=== PATIENT | female | born 2000 | race African-American/Black ===

== ENCOUNTER 2021-05-14 19:15 | Emergency (ER) | payer OTHER, SELFPAY ==
[2021-05-14 19:28] VITALS: BP 105/68; PULSE 81; RESP 20; TEMP 36.7; O2SAT 100
--- NOTE | 2021-05-14 19:42 | ED.ABDPAIN ---
HPI - Abdominal Pain General Chief Complaint: Abdominal Pain Stated Complaint: Stomach Pain Time Seen by Provider: 05/14/21 19:42 Source: patient Mode of arrival: ambulatory History of Present Illness HPI narrative: Jared Smith is a 20 yo female who comes to [facility] with complaints of lower abdominal pain and cramping, she says she has had nausea vomiting and diarrhea over the last few days. States that it hurts more worse in the morning and sometimes start to hurt after she eats; she denies use of alcohol are smoking. She has had normal bowel movements in the last few days Related Data Allergies Allergy/AdvReac Type Severity Reaction Status Date / Time No Known Allergies Allergy Verified 05/14/21 19:39 Review of Systems Review of Systems: Narrative: CONSTITUTIONAL: Denies fever, chills, sweats. EYES: Denies visual changes, redness, discharge. ENT: Denies rhinorrhea, congestion, sore throat, otalgia. CARDIOVASCULAR: Denies chest pain, palpitations, edema. RESPIRATORY: Denies dyspnea, wheezing, cough GASTROINTESTINAL: Has abdominal pain, has some nausea, some vomiting, occasional diarrhea. GENITOURINARY: Denies dysuria, hematuria, no abnormal discharge SKIN: Denies rash or itching. NEUROLOGIC: Denies numbness, or focal weakness. PSYCHIATRIC: Denies anxiety or depression. PMFSH Past Medical History Medical History No acute medical problems Family History Family History Other No acute medical problems Social History Social History Smoking status: Never smoker Alcohol intake: never Comments At time of signature, I agree with nursing past medical, surgical, social and family history. There is no relevant family history pertinent to the presenting complaint. Exam Narrative: Exam Narrative: GENERAL: This is a well-nourished, well-developed patient, in mild distress. HEAD: normocephalic, atraumatic. EYES: Sclera clear/white. Vision is grossly intact. EARS: External ears normal, \ Hearing grossly intact. NOSE: External nose normal without nasal discharge, nares without redness, no rhinorrhea. THROAT: Mucous membranes moist, NECK: Neck supple, non-tender CARDIOVASCULAR: Regular rate and rhythm without murmurs, gallops, or rubs. RESPIRATORY: Clear to auscultation. Breath sounds equal bilaterally. No wheezes, rales, or rhonchi. GASTROINTESTINAL: Abdomen soft, mild tenderness in the epigastric area, good normal bowel sounds, SKIN: warm, intact with no suspicious lesions or rash, good texture and turgor. NEURO: awake, alert, and oriented to person, place and time. There were no obvious focal neurologic abnormalities. Steady gait EXTREMITIES: Normal range of motion. BACK: Nontender without deformity Course Course Emergency Course: Patient came to [facility] with complaints of abdominal pain some nausea vomiting last couple weeks states that the pain is worse in the morning and sometimes worse after eating Started on Bentyl, Pepcid, and Zofran Patient is to try to eat bland food and eat regularly take medication as prescribed. If this starts to run a fever are pain worsens or symptoms intensify needs to go to the emergency room for blood work and further work-up Vital Signs Vital signs: Vital Signs Temperature 98.0 F 05/14/21 19:28 Pulse Rate 81 05/14/21 19:28 Respiratory Rate 20 05/14/21 19:28 Blood Pressure 105/68 05/14/21 19:28 Pulse Oximetry 100 05/14/21 19:28 Temperature 98.0 F 05/14/21 19:28 Pulse Rate 81 05/14/21 19:28 Respiratory Rate 20 05/14/21 19:28 Blood Pressure 105/68 05/14/21 19:28 Pulse Oximetry 100 05/14/21 19:28 MDM - Abdominal Pain Differential Diagnosis Differential diagnosis: Likely abdominal pain, gastroenteritis and other Lab Data Labs: UCG Bedside Result
== END 2021-05-14 20:01 | disposition home or self-care (01) ==
PROVIDERS: Emergency Provider Nurse Practitioner
DX: K21.9 Gastro-esophageal reflux disease without esophagitis (principal)
CPT/HCPCS: 81003; 81025; 99213; G0463

== ENCOUNTER 2023-01-06 14:02 | Emergency (ER) | payer OTHER, SELFPAY ==
[2023-01-06 14:12] VITALS: BP 123/83; PULSE 62; RESP 18; TEMP 37.6; O2SAT 100
--- NOTE | 2023-01-06 15:01 | ED.FEMALEGU ---
HPI - Female Genitourinary General Chief complaint: Urogenital-Female Stated complaint: UTI Time Seen by Provider: 01/06/23 14:55 Source: patient Mode of arrival: ambulatory Limitations: no limitations History of Present Illness HPI Narrative: Patient presents today with a 2 day history of malodorous urine, dysuria, cloudy urine, and suprapubic pressure. Denies back pain, fever, nausea or vomiting, or any additional symptoms. She has been taking azo with mild relief. Last dose was last night. Related Data Allergies Allergy/AdvReac Type Severity Reaction Status Date / Time No Known Allergies Allergy Verified 05/14/21 19:39 Review of Systems Review of Systems: CONSTITUTIONAL: Denies body aches, fever, chills, or sweats. EYES: Denies visual changes, redness, or discharge. ENT: Denies rhinorrhea, congestion, sore throat, or otalgia. CARDIOVASCULAR: Denies chest pain, palpitations, or edema. RESPIRATORY: Denies cough or dyspnea. GASTROINTESTINAL: Denies nausea, vomiting, or diarrhea.+ suprapubic pain GENITOURINARY: Denies hematuria.+ dysuria, malodorous urine, cloudy urine SKIN: Denies rash, itching, or wounds. MUSCULOSKELETAL: Denies back pain, joint pain, or myalgia. NEUROLOGIC: Denies headache, numbness, tingling, or weakness. PSYCH: Denies depression or anxiety. [facility] Past Medical History Medical History No acute medical problems Family History Family History Other No acute medical problems Social History Social History Smoking status: Never smoker Alcohol intake: never Comments At time of signature, I have reviewed and agree with nursing past medical, surgical, social and family history unless otherwise noted. Please see nursing chart for further information. There is no relevant family history pertinent to the presenting complaint Exam Narrative: GENERAL: Well-appearing, well-nourished, and in no acute distress. HEAD: Normocephalic, atraumatic. EYES: EOMI. No redness or drainage. Conjunctivae normal. ENT: Mucous membranes pink and moist. NECK: Normal AROM. CHEST: No respiratory distress. Clear to auscultation. HEART: Regular rate and rhythm. No murmur appreciated. ABDOMEN: Soft, nontender, nondistended, normal active bowel sounds.-CVAT MUSCULOSKELETAL: No bony tenderness. EXTREMITIES: Normal range of motion. No edema. SKIN: Warm, dry, no rash. Capillary refill normal. Normal skin turgor. NEURO: No focal deficits. Alert and oriented x3. Gait steady. PSYCH: Normal affect. No signs of depression or anxiety. Course Course Level of Care: Express Care Visit Vital Signs Vital signs: Vital Signs Temperature 99.6 F 01/06/23 14:12 Pulse Rate 62 01/06/23 14:12 Respiratory Rate 18 01/06/23 14:12 Blood Pressure 123/83 01/06/23 14:12 Pulse Oximetry 100 01/06/23 14:12 Oxygen Delivery Room Air 01/06/23 14:12 Temperature 99.6 F 01/06/23 14:12 Pulse Rate 62 01/06/23 14:12 Respiratory Rate 18 01/06/23 14:12 Blood Pressure 123/83 01/06/23 14:12 Pulse Oximetry 100 01/06/23 14:12 Oxygen Delivery Room Air 01/06/23 14:12 Reviewed. Pt has been instructed to follow up with her PCP regarding her elevated blood pressure today. MDM - Female Genitourinary MDM Narrative Medical decision making narrative: Symptoms and urinalysis consistent with UTI. Prescription for Macrobid will be sent to pharmacy. Anticipatory guidance given. Differential Diagnosis Differential diagnosis: Likely urinary tract infection, vaginitis, cystitis and other (Pyelonephritis, interstitial cystitis) Lab Data Attestation: I reviewed the patient's lab results. Labs: Urine Glucose Negative Reference Range: Negative Urine Bilirubin
== END 2023-01-06 15:08 | disposition home or self-care (01) ==
PROVIDERS: Emergency Provider Nurse Practitioner
DX: N39.0 Urinary tract infection, site not specified (principal)
CPT/HCPCS: 81003; 87077; 87086; 87186; 99213; G0463